=== PATIENT | female | born 1990 | race Caucasian/White ===

== ENCOUNTER → 2018-02-15 17:26 | Outpatient (CLI) | payer SELFPAY ==
[2018-02-15 18:31] LABS: Absolute Lymphocyte Count 2.24 X10^3/ul (0.83-4.51); Absolute Neutrophil Count 5.3 X10^3/uL (2.0-7.7); Basophil# 0.04 X10^3/uL; Basophil% 0.5 % (0-1); Eosinophil# 0.16 X10^3/uL; Hematocrit 33.7 % (37-47); Lymphocyte # 2.24 X10^3/ul (4.0); Lymphocyte % 27.4 % (19-41); Mean Corp Hgb Conc 32.6 g/gl (32-36); Mean Corpuscular Hgb 26.1 pg (27.0-32.0); Mean Corpuscular Volume 79.9 fL (81-99); Monocyte# 0.44 X10^3/uL; Monocyte% 5.4 % (0-10); Neutrophil % 64.6 % (47-70); Platelet Count 212 K/mm3 (150-450); RBC Distribution Width CV 13.1 % (11.6-14.6); RBC Distribution Width SD 37.7 fl (35.1-43.9); Red Blood Count 4.22 M/mm3 (4.2-5.4); White Blood Count 8.2 K/mm3 (4.4-11.0)
[2018-02-15 18:44] LABS: POSITIVE COUNT NO; POSITIVE DIFFERENTIAL NO; POSITIVE MORPHOLOGY NO
[2018-02-15 20:31] LABS: Chlamydia Trachomatis by PCR Negative (Negative); Neisserai gonorrhoeae by PCR Negative (Negative); Probe Check PASS; Sample Adequacy Control PASS; Specimen Processing Control PASS
[2018-02-16 11:00] LABS: HIV - WCH Non-Reactive (Nonreactive); Rubella IgG > 500.0 IU/mL
[2018-02-17 17:11] LABS: HEPATITIS B SURFACE AG Negative (Negative)
[2018-02-18 04:35] LABS: Rapid Plasmin Reagin (RPR) NONREACTIVE (NONREACTIVE)
[2018-02-19 10:30] LABS: HPV Reflexed? NOT INDICATED
== END ==
PROVIDERS: Family Provider Family Medicine; PCP Family Medicine; Visit Provider Obstetrics & Gynecology
DX: Z34.90 Encounter for supervision of normal pregnancy, unspecified, unspecified trimester (principal)
CPT/HCPCS: 36415; 85025; 86592; 86703; 86762; 86850; 86900; 87086; 87340; 87491; 87591; 88175; G0145

== ENCOUNTER → 2018-04-29 12:56 | Outpatient (CLI) | payer SELFPAY ==
--- NOTE | 2018-04-29 13:02 | US_ITS ---
STUDY: SECOND AND THIRD TRIMESTER OBSTETRICAL ULTRASOUND REASON FOR EXAM: Female, 27 years old. Complete 2nd trimester OB ultrasound with anatomy survey and biometrics. LMP: 12/23/2017. RUBEN (LMP) 09/29/2018. GA (LMP) 18 week 1 day. TECHNIQUE: Transabdominal PRIOR ULTRASOUND: None. FINDINGS: There is a single live intrauterine gestation in cephalic presentation with cardiac rate 156 bpm. Amniotic fluid quantity is normal, deepest vertical pocket is 6.4 cm. The placenta is anterior, not low-lying, grade 1. Cervical length is 3.1 cm, closed. The maternal adnexa are not visualized. BIOMETRY: Measurement in centimeters. BPD: 4.11: 18 weeks, 4 days HC: 15.51: 18 weeks, 4 days AC: 12.26: 18 weeks, 0 days FL: 2.73: 18 weeks, 3 days CI: 77% FL/BPD: 66% FL/AC: 22% HC/AC: 1.27 age by current US: 18 weeks, 3 days. RUBEN by current US: 09/27/2018. Estimated weight: 227 grams, +/- 33 grams, 46 %. ANATOMY: Gender: Female. Cranium: Normal lateral ventricles. Normal choroid plexus. Normal cerebellum. Normal cisterna magna. Normal face, nose and lips. Chest: Normal 4-chamber heart. Abdomen/Pelvis: Normal diaphragm. Normal stomach. Normal abdominal wall. Normal cord insertion. Normal 3 vessel cord. Normal kidneys. Normal bladder. Spine: Spinal views are somewhat limited due to positioning. Evaluated portions exhibit grossly normal segmentation without evidence of dysraphism. However, follow-up imaging be necessary Extremities: Normal bilateral upper extremities. Normal bilateral lower extremities. US/OB Anatomy Scan IMPRESSION: Single live intrauterine gestation. No acute or maternal abnormality is evident. In the anatomic survey, views of the spine are partially incomplete. Although no gross spinal abnormality was observed, follow-up limited sonography of the spine should be performed after a brief normal growth, within 1 or 2 weeks. The anatomic survey is otherwise normal. Electronically Signed: Otis Brown, at 16:10 EDT Tel , Service support ,
== END ==
PROVIDERS: Family Provider Family Medicine; PCP Family Medicine; Visit Provider Nurse Practitioner Women's Health
DX: Z34.90 Encounter for supervision of normal pregnancy, unspecified, unspecified trimester (principal)
CPT/HCPCS: 76805

== ENCOUNTER → 2018-05-02 16:11 | Outpatient (CLI) | payer SELFPAY | PROVIDERS: Family Provider Family Medicine; PCP Family Medicine; Referring Provider Nurse Practitioner Women's Health; Visit Provider Nurse Practitioner Women's Health | DX: Z36.9 Encounter for antenatal screening, unspecified (principal) | CPT/HCPCS: 36415; 82105; 82677; 84702; 86336 ==

== ENCOUNTER → 2018-06-30 13:43 | Outpatient (CLI) | payer SELFPAY ==
[2018-06-30 13:12] VITALS: BMI 26.9
[2018-06-30 14:26] LABS: Absolute Lymphocyte Count 1.31 X10^3/ul (0.83-4.51); Absolute Neutrophil Count 7.5 X10^3/uL (2.0-7.7); Basophil# 0.02 X10^3/uL; Basophil% 0.2 % (0-1); Eosinophil# 0.18 X10^3/uL; Eosinophils% 1.9 % (0-5); Hemoglobin 10.4 g/dl (12.0-15.0); Lymphocyte # 1.31 X10^3/ul (4.0); Lymphocyte % 13.9 % (19-41); Mean Corp Hgb Conc 32.5 g/gl (32-36); Mean Corpuscular Hgb 27.1 pg (27.0-32.0); Mean Corpuscular Volume 83.3 fL (81-99); Mean Platelet Vol. 9.5 fl (6.2-12.0); Monocyte# 0.39 X10^3/uL; Monocyte% 4.1 % (0-10); Neutrophil # 7.48 X10^3/uL (2.7-7.7); Neutrophil % 79.7 % (47-70); Platelet Count 195 K/mm3 (150-450); RBC Distribution Width CV 13.6 % (11.6-14.6); RBC Distribution Width SD 41.6 fl (35.1-43.9); Red Blood Count 3.84 M/mm3 (4.2-5.4); White Blood Count 9.4 K/mm3 (4.4-11.0)
[2018-06-30 14:28] LABS: Glucose Challenge Gest 1H 50g 134 mg/dL (70-140); POSITIVE COUNT NO; POSITIVE DIFFERENTIAL NO; POSITIVE MORPHOLOGY NO
== END ==
PROVIDERS: Family Provider Family Medicine; PCP Family Medicine; Referring Provider Nurse Practitioner Women's Health; Visit Provider Nurse Practitioner Women's Health
DX: Z34.90 Encounter for supervision of normal pregnancy, unspecified, unspecified trimester (principal)
CPT/HCPCS: 36415; 82950; 85025

== ENCOUNTER → 2018-09-07 16:54 | Outpatient (CLI) | payer SELFPAY ==
[2018-09-07 12:01] VITALS: BMI 26.9
== END ==
PROVIDERS: Family Provider Family Medicine; PCP Family Medicine; Referring Provider Obstetrics & Gynecology; Visit Provider Obstetrics & Gynecology
DX: Z34.90 Encounter for supervision of normal pregnancy, unspecified, unspecified trimester (principal)
CPT/HCPCS: 87081

== ENCOUNTER 2018-09-22 11:20 | Inpatient (IN) | payer SELFPAY ==
[2018-09-19 15:47] VITALS: BMI 26.9
[2018-09-22 11:44] VITALS: BMI 30.9
[2018-09-22] MEDS: 0.9% Saline Lock 10 ML Syringe IV (12:52)
[2018-09-22 13:31] LABS: Hematocrit 34.6 % (37-47); Mean Corp Hgb Conc 31.8 g/gl (32-36); Mean Platelet Vol. 11.6 fl (6.2-12.0); Platelet Count 187 K/mm3 (150-450); RBC Distribution Width CV 14.2 % (11.6-14.6); Red Blood Count 4.07 M/mm3 (4.2-5.4); White Blood Count 9.6 K/mm3 (4.4-11.0)
[2018-09-22 13:35] LABS: Scan Indicated on CBC? Y/N NO
--- NOTE | 2018-09-22 13:42 | PCM.HP.OB ---
- Problem List (1) Anemia during Status: Acute Comment: Recommended iron (2) Status: Acute Qualifiers: Comment: G1 (3) Supervision of normal Status: Acute Qualifiers: Comment: PRR RUBEN 09/29/18 girl Gurwinder (4) Maternal asthma complicating Status: Acute Comment: mild intermittent rare albuterol PRN (5) PROM (premature rupture of membranes) Status: Acute History Date of Admission: 09/22/18 Final RUBEN: 09/29/18 Gestational age: 39 Weeks and 0 Days History of this : This is a 27 year-old, at 39 weeks gestational age presents with clear ROM this morning at 5 am. she is having some contractions but no significant labor yet. she dneies significant bleeding and admits good fm. Medical History: Medical History (Last Reviewed 09/19/18 @ 15:47 by Elidia Ash) Asthma J45.909 Surgical History: Surgical History (Last Reviewed 09/19/18 @ 15:47 by Elidia Ash) S/P tonsillectomy and adenoidectomy Z90.89 Allergies No Known Allergies Allergy (Verified 09/19/18 15:46) Home Medications: Home Medications docosahexanoic acid 200 mg capsule 1 mg PO BID 02/15/18 docusate sodium 100 mg capsule 100 mg PO QDAY 02/15/18 vitamin,calcium,dufjkscv-nmnk-xrbtb acid tablet 1 tab PO QDAY 02/15/18 Smoking Status: Never smoker Alcohol: None Number of Fetus(es): 1 Heart Tracins moderate variability reactive no decels toco irregular History Past Pregnancies: Past Pregnancies Delivery Date Name GA/Weeks Outcome Route Weight Gender Labor Length Anesthesia Delivery Location Provider FOB Labs: [facility] & Results 09/22/18 09/22/18 13:05 13:05 WBC 9.6 RBC 4.07 L Hgb 11.0 L Hct 34.6 L MCV 85.0 MCH 27.0 MCHC 31.8 L RDW 14.2 RDW Differential 43.0 Plt Count 187 MPV 11.6 Blood Type Pending Antibody Screen Pending Course Did the patient receive Yes care? Labs Blood Type: A RH: POSITIVE RPR/VDRL/Syphilis Nonreactive Rubella status Immune HbSAg Negative Date Done: 02/15/18 Chlamydia Negative Gonorrhea Negative HIV/AIDS Non-Reactive Group B Strep: Negative Current Obstetrical History Gestational Diabetes No Incompetent Cervix No Infertility No IUGR No Macrosomia No Hypertension/Pre-eclampsia No Placenta Previa/Abruption No PTL/PROM No Uterine anomaly No Oligohydramnios No Polyhydramnios No Multiple gestation No Past Medical History Asthma Yes: inhaler Diabetes No Hypertension No Heart disease No Mitral valve prolapse No Neurologic/Seizure disorder/ No Migraines Kidney disease No Liver disease No Varicosities No Clotting disorders/Hx of DVT No Thyroid Dysfunction No Other medical diseases No Psychiatric disorders No Major trauma No Abnormal PAP smear No Sleep apnea No Mammogram in the last 2 years No Social History Marital Status: Alleged father Caitlyn Hx Smoking No Smoking Status Never smoker Expected Delivery Method: Spontaneous Vaginal Review of Systems Constitutional: Denies: Fever, Malaise Eyes: Denies: Blurred vision, Vision Change HEENT: Denies: Head Aches, Visual Changes Cardiovascular: Denies: Chest Pain, Palpitations Respiratory: Denies: Cough, Shortness of Breath, Wheezing Gastrointestinal: Denies: Abdominal Pain, Diarrhea, Nausea, Vomiting Genitourinary: Denies: Dysuria, Hematuria Musculoskeletal: Denies: Joint Pain, Muscle pain Skin: Denies: Lesions, Rash Neurological: Denies: Blurred vision, Focal weakness, Headaches Psychiatric: Denies: Anxiety, Depression Endocrine: Denies: Heat/ Cold Intolerance Hematologic/ Lymphatic: Denies: Easy Bruising, Easy Bleeding Physical Exam General: Alert, Cooperative, No apparent distress HEENT: Atraumatic, Normocephalic. Negative for: Thyromegaly, Lymphadenopathy Cardiovascular: Regular rate Lungs: Normal air movement Abdomen: Soft, Non Tender, Gravid Neurological: Deep Tendon Reflexes 2+/4 and Symmetrical, Neuro grossly intact. 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 Negative for: Vulvar lesions Estimated gestational size: Appropriate for gestational size Presentation: Cephalic Cervix Dilation (cm): 2 Assessment/Plan All Active Problems (Last Reviewed 09/19/18 @ 15:47 by Elidia Ash) PROM (premature rupture of membranes) (Acute) Anemia during (Acute) (Acute) Supervision of normal (Acute) Maternal asthma complicating (Acute) This is a 27 year-old, at 39 weeks gestational age presents with PROM Patient presents IAL, plan expectant management for , pitocin if needed. Pain management: Plans minimal intervention but is open to epidural. GBS negative Management of any complications: None I have reviewed the [facility] and made any clinically relevant updates.
--- NOTE | 2018-09-22 13:45 | HP.PCM_ITS ---
- Problem List (1) Anemia during Status: Acute Comment: Recommended iron (2) Status: Acute Qualifiers: Comment: G1 (3) Supervision of normal Status: Acute Qualifiers: Comment: PRR RUBEN 09/29/18 girl Gurwinder (4) Maternal asthma complicating Status: Acute Comment: mild intermittent rare albuterol PRN (5) PROM (premature rupture of membranes) Status: Acute History Date of Admission: 09/22/18 Final RUBEN: 09/29/18 Gestational age: 39 Weeks and 0 Days History of this : This is a 27 year-old, at 39 weeks gestational age presents with clear ROM this morning at 5 am. she is having some contractions but no significant labor yet. she dneies significant bleeding and admits good fm. Medical History: Medical History (Last Reviewed 09/19/18 @ 15:47 by Elidia Ash) Asthma J45.909 Surgical History: Surgical History (Last Reviewed 09/19/18 @ 15:47 by Elidia Ash) S/P tonsillectomy and adenoidectomy Z90.89 Allergies No Known Allergies Allergy (Verified 09/19/18 15:46) Home Medications: Home Medications docosahexanoic acid 200 mg capsule 1 mg PO BID 02/15/18 docusate sodium 100 mg capsule 100 mg PO QDAY 02/15/18 vitamin,calcium,djehqovv-ldnv-tbjjo acid tablet 1 tab PO QDAY 02/15/18 Smoking Status: Never smoker Alcohol: None Number of Fetus(es): 1 Heart Tracins moderate variability reactive no decels toco irregular History Past Pregnancies: Past Pregnancies Delivery Date Name GA/Weeks Outcome Route Weight Gender Labor Length Anesthesia Delivery Location Provider FOB Labs: [facility] Labs & Results 09/22/18 09/22/18 13:05 13:05 WBC 9.6 RBC 4.07 L Hgb 11.0 L Hct 34.6 L MCV 85.0 MCH 27.0 MCHC 31.8 L RDW 14.2 RDW Differential 43.0 Plt Count 187 MPV 11.6 Blood Type Pending Antibody Screen Pending Course Did the patient receive Yes care? Labs Blood Type: A RH: POSITIVE RPR/VDRL/Syphilis Nonreactive Rubella status Immune HbSAg Negative Date Done: 02/15/18 Chlamydia Negative Gonorrhea Negative HIV/AIDS Non-Reactive Group B Strep: Negative Current Obstetrical History Gestational Diabetes No Incompetent Cervix No Infertility No IUGR No Macrosomia No Hypertension/Pre-eclampsia No Placenta Previa/Abruption No PTL/PROM No Uterine anomaly No Oligohydramnios No Polyhydramnios No Multiple gestation No Past Medical History Asthma Yes: inhaler Diabetes No Hypertension No Heart disease No Mitral valve prolapse No Neurologic/Seizure disorder/ No Migraines Kidney disease No Liver disease No Varicosities No Clotting disorders/Hx of DVT No Thyroid Dysfunction No Other medical diseases No Psychiatric disorders No Major trauma No Abnormal PAP smear No Sleep apnea No Mammogram in the last 2 years No Social History Marital Status: Alleged father Caitlyn Hx Smoking No Smoking Status Never smoker Expected Delivery Method: Spontaneous Vaginal Review of Systems Constitutional: Denies: Fever, Malaise Eyes: Denies: Blurred vision, Vision Change HEENT: Denies: Head Aches, Visual Changes Cardiovascular: Denies: Chest Pain, Palpitations Respiratory: Denies: Cough, Shortness of Breath, Wheezing Gastrointestinal: Denies: Abdominal Pain, Diarrhea, Nausea, Vomiting Genitourinary: Denies: Dysuria, Hematuria Musculoskeletal: Denies: Joint Pain, Muscle pain Skin: Denies: Lesions, Rash Neurological: Denies: Blurred vision, Focal weakness, Headaches Psychiatric: Denies: Anxiety, Depression Endocrine: Denies: Heat/ Cold Intolerance Hematologic/ Lymphatic: Denies: Easy Bruising, Easy Bleeding Physical Exam General: Alert, Cooperative, No apparent distress HEENT: Atraumatic, Normocephalic. Negative for: Thyromegaly, Lymphadenopathy Cardiovascular: Regular rate Lungs: Normal air movement Abdomen: Soft, Non Tender, Gravid Neurological: Deep Tendon Reflexes 2+/4 and Symmetrical, Neuro grossly intact. 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 Negative for: Vulvar lesions Estimated gestational size: Appropriate for gestational size Presentation: Cephalic Cervix Dilation (cm): 2 Assessment/Plan All Active Problems (Last Reviewed 09/19/18 @ 15:47 by Elidia Ash) PROM (premature rupture of membranes) (Acute) Anemia during (Acute) (Acute) Supervision of normal (Acute) Maternal asthma complicating (Acute) This is a 27 year-old, at 39 weeks gestational age presents with PROM Patient presents IAL, plan expectant management for , pitocin if needed. Pain management: Plans minimal intervention but is open to epidural. GBS negative Management of any complications: None I have reviewed the [facility] and made any clinically relevant updates.
[2018-09-22] MEDS: Lactated Ringers 1,000 ML 50 ML IV ×2 (13:55→17:11)
[2018-09-22] MEDS: Oxytocin 30 units/NS 500 ml 30 UNITS/500 ML IV.SOLN IV (14:01)
[2018-09-22] MEDS: fentaNYL-bupivacaine (epidural) 100 ML BAG EPIDURAL (16:18)
[2018-09-22] MEDS: Oxytocin 30 units/NS 500 ml 30 UNITS/500 ML IV.SOLN 334 UNITS IV (19:47)
--- NOTE | 2018-09-22 20:08 | PCM.OB.VAG ---
- Problem List (1) Anemia during Status: Acute Comment: Recommended iron (2) Status: Acute Qualifiers: Comment: G1 (3) Supervision of normal Status: Acute Qualifiers: Comment: PRR RUBEN 09/29/18 girl Gurwinder (4) Maternal asthma complicating Status: Acute Comment: mild intermittent rare albuterol PRN (5) PROM (premature rupture of membranes) Status: Acute Vaginal Delivery Maternal Presentation: Active Labor prom 5 am clear fluid Amniotic Membrane Rupture Type: Spontaneous at home Amniotic Fluid Description: Clear Final RUBEN: 09/29/18 Gestational age: 39 Weeks and 0 Days Date of Procedure: 09/22/18 Pre-Operative Diagnosis: prom Post-Operative Diagnosis: same Surgery/ Procedure Performed: Spontaneous Vaginal Delivery Type of Anesthesia: Epidural, Local with 1% lidocaine Description of Procedure: Patient began pushing and delivered the head in the ARON presentation. The head was delivered atraumatically. The anterior and posterior shoulders delivered without complication followed by the rest of the infant and the infant was placed on the maternal abdomen. Delayed cord clamping was employed for approximately 60 seconds. Cord was clamped and cut and gentle traction was applied to the cord and the placenta delivered spontaneously immediately following it was noted to be intact with three-vessel cord. The perineum and vagina were inspected and noted to have second degree laceration repaired in the usual fashion. EBL was 300 cc. Patient and infant tolerated delivery well. Presentation: ARON Placental Delivery Description: Spontaneous Placenta Disposition: [facility] Cord Vessel Description: 3 Vessels Cord Entanglement: True Knot(s) Estimated Blood Loss: 300 Infant A gender: Female Episiotomy Description: None Laceration: Perineal Extension/lac, 2nd degree Medications given after delivery: IV Pitocin Complications: None
--- NOTE | 2018-09-22 20:10 | PCM.DCVAG ---
Discharge Diet: No Restrictions Discharge Activity: Return to Normal Activity, May not drive while taking narcotic pain medications., May Shower May resume sexual activity in: 4-6 weeks Call your doctor if your incision/area has: Continuous Slow Oozing, Sudden Increased Bleeding, Increased Pain/ Swelling, Increased Redness, Foul Smelling Discharge Additional Instructions: If you experience any of the following, contact your healthcare provider. Bleeding that soaks a pad every hour for 2 hours Fever 100.4 or higher Unrelieved incision or abdominal pain Swelling, redness, discharge or bleeding from your incision or episiotomy site Your incision begins to separate Problems urinating (including inability to urinate or burning while urinating). Visual changes Severe headache Flu-like symptoms Pain or redness in one of both of your breasts Pain, warmth, tenderness or swelling in your legs, especially the calf area Frequent nausea and vomiting Symptoms of depression or anxiety If you experience any of the following, call 911 or go to the nearest Emergency Room. Chest pain Problems breathing Seizure activity Partial or complete paralysis of a body part, slurred speech, weakness or drooping of the face, or a sudden inability to walk or hold your balance Allergies/Adverse Reactions: Allergies No Known Allergies Allergy (Verified 09/19/18 15:46) Medications to take at Discharge docosahexanoic acid 200 mg capsule 1 mg PO BID 02/15/18 docusate sodium 100 mg capsule 100 mg PO QDAY 02/15/18 vitamin,calcium,vpubhopd-wusr-rodic acid tablet 1 tab PO QDAY 02/15/18 Please Follow Up With: Nicky Medellin MD - [phone] When: Call to make an appointment with your doctor in 6 weeks. If you had elevated Blood pressure or 4th degree laceration you will need to be seen in 2 weeks. Primary Care Physician: Dorian Goode [Primary Care Provider] - Test Results: Test results from this visit will be discussed in further detail at your follow-up appointment, if applicable.
--- NOTE | 2018-09-22 20:11 | DCINST_ITS ---
Discharge Diet: No Restrictions Discharge Activity: Return to Normal Activity, May not drive while taking narcotic pain medications., May Shower May resume sexual activity in: 4-6 weeks Call your doctor if your incision/area has: Continuous Slow Oozing, Sudden Increased Bleeding, Increased Pain/ Swelling, Increased Redness, Foul Smelling Discharge Additional Instructions: If you experience any of the following, contact your healthcare provider. * Bleeding that soaks a pad every hour for 2 hours * Fever 100.4 or higher * Unrelieved incision or abdominal pain * Swelling, redness, discharge or bleeding from your incision or episiotomy site * Your incision begins to separate * Problems urinating (including inability to urinate or burning while urinating). * Visual changes * Severe headache * Flu-like symptoms * Pain or redness in one of both of your breasts * Pain, warmth, tenderness or swelling in your legs, especially the calf area * Frequent nausea and vomiting * Symptoms of depression or anxiety If you experience any of the following, call 911 or go to the nearest Emergency Room. * Chest pain * Problems breathing * Seizure activity * Partial or complete paralysis of a body part, slurred speech, weakness or drooping of the face, or a sudden inability to walk or hold your balance Allergies/Adverse Reactions: Allergies No Known Allergies Allergy (Verified 09/19/18 15:46) Medications to take at Discharge docosahexanoic acid 200 mg capsule 1 mg PO BID 02/15/18 docusate sodium 100 mg capsule 100 mg PO QDAY 02/15/18 vitamin,calcium,idtbpfra-jdar-pttbn acid tablet 1 tab PO QDAY 02/15/18 Please Follow Up With: Nicky Medellin MD - [phone] When: Call to make an appointment with your doctor in 6 weeks. If you had elevated Blood pressure or 4th degree laceration you will need to be seen in 2 weeks. Primary Care Physician: Dorian Goode [Primary Care Provider] - Test Results: Test results from this visit will be discussed in further detail at your follow- up appointment, if applicable.
[2018-09-22] MEDS: Oxytocin 30 units/NS 500 ml 30 UNITS/500 ML IV.SOLN 167 UNITS IV (20:17)
[2018-09-22] MEDS: Naproxen 250 MG Tablet PO (22:15)
[2018-09-22 23:25] VITALS: BP 121/77; PULSE 107; RESP 18; TEMP 37.3; O2SAT 99
[2018-09-23] MEDS: Acetaminophen 500 MG Tablet 1000 MG PO ×3 (02:25→18:35)
[2018-09-23 04:00] VITALS: BP 113/60; PULSE 85; RESP 16; TEMP 37.1
[2018-09-23] MEDS: Naproxen 250 MG Tablet PO ×3 (06:36→22:42)
[2018-09-23 07:50] VITALS: BP 118/61; PULSE 92; RESP 16; TEMP 37.1; O2SAT 96
--- NOTE | 2018-09-23 09:14 | PCM.PN.OB ---
Patient Problems: Active and Suspected Problems (Last Reviewed 09/19/18 @ 15:47 by Elidia Ash) PROM (premature rupture of membranes) (Acute) Subjective: doing well no complaints pain controlled no CP SOB N V ambulating well tolerating po lochia moderate, going well - Physical Exam General: Alert, Oriented x3 Vital Signs Temp Pulse Resp BP Pulse Ox 98.7 F 85 16 113/60 99 09/23/18 04:00 09/23/18 04:00 09/23/18 04:00 09/23/18 04:00 09/22/18 23:25 Oxygen Delivery Method Room Air Weight: 174 lb 13.225 oz Body Mass Index (BMI) 30.9 Intake and Output for Last 24 Hours 09/21/18 09/22/18 09/23/18 23:59 23:59 23:59 Intake Total 3064 / 3064 Output Total 1500 / 1500 Balance 1564 / 1564 Laboratory Tests Past 24 Hrs 09/22/18 09/22/18 13:05 13:05 WBC 9.6 RBC 4.07 L Hgb 11.0 L Hct 34.6 L MCV 85.0 MCH 27.0 MCHC 31.8 L RDW 14.2 RDW Differential 43.0 Plt Count 187 MPV 11.6 Blood Type A POSITIVE Antibody Screen NEGATIVE Medical Necessity - Tobacco Use Smoking Status: Never smoker Assessment/Plan All Active Problems (Last Reviewed 09/19/18 @ 15:47 by Elidia Ash) PROM (premature rupture of membranes) (Acute) Anemia during (Acute) (Acute) Supervision of normal (Acute) Maternal asthma complicating (Acute) s/p PPD # 1 1. routine post delivery care 2. breast feeding- support given 3. rh positive 4. rubella immune
[2018-09-23] MEDS: Senna/Docusate Sodium 1 Tablet PO (10:35)
[2018-09-23 12:30] VITALS: BP 114/72; PULSE 89; RESP 14; TEMP 37.1; O2SAT 98
--- NOTE | 2018-09-23 12:30 | NURSING ---
pt using lasinoh prn to help with nipple tenderness
[2018-09-23 16:30] VITALS: BP 112/65; PULSE 78; RESP 14; TEMP 36.6; O2SAT 99
[2018-09-23 20:10] VITALS: BP 111/72; PULSE 90; RESP 16; TEMP 36.9; O2SAT 97
[2018-09-24 02:06] VITALS: BP 121/76; PULSE 78; RESP 14; TEMP 36.7; O2SAT 97
[2018-09-24] MEDS: Acetaminophen 500 MG Tablet 1000 MG PO ×2 (02:38→11:41)
--- NOTE | 2018-09-24 07:00 | PCM.PN.OB ---
Patient Problems: Active and Suspected Problems (Last Reviewed 09/19/18 @ 15:47 by Elidia Ash) PROM (premature rupture of membranes) (Acute) Subjective: doing well no complaints pain controlled no CP SOB N V ambulating well tolerating po lochia moderate, going well - Physical Exam Vital Signs Temp Pulse Resp BP Pulse Ox 98.1 F 78 14 121/76 H 97 09/24/18 02:06 09/24/18 02:06 09/24/18 02:06 09/24/18 02:06 09/24/18 02:06 Oxygen Delivery Method Room Air Weight: 174 lb 13.225 oz Body Mass Index (BMI) 30.9 Intake and Output for Last 24 Hours 09/22/18 09/23/18 09/24/18 23:59 23:59 23:59 Intake Total 3064 / 3064 Output Total 1500 / 1500 Balance 1564 / 1564 Medical Necessity - Tobacco Use Smoking Status: Never smoker Assessment/Plan All Active Problems (Last Reviewed 09/19/18 @ 15:47 by Elidia Ash) PROM (premature rupture of membranes) (Acute) Anemia during (Acute) (Acute) Supervision of normal (Acute) Maternal asthma complicating (Acute) s/p PPD # 2 1. routine post delivery care 2. breast feeding- support given 3. rh positive 4. rubella immune
[2018-09-24 08:00] VITALS: BP 115/63; PULSE 86; RESP 16; TEMP 36.7
[2018-09-24] MEDS: Naproxen 250 MG Tablet PO (08:08)
[2018-09-24] MEDS: Senna/Docusate Sodium 1 Tablet PO (11:41)
[2018-09-24 12:45] VITALS: BP 126/75; PULSE 85; RESP 16; TEMP 36.7
== END 2018-09-24 12:30 | disposition home or self-care (01) | DRG 807 ==
PROVIDERS: Admitting Provider Obstetrics & Gynecology; Family Provider Family Medicine; PCP Family Medicine; Visit Provider Obstetrics & Gynecology
DX: O42.92 Full-term premature rupture of membranes, unspecified as to length of time between rupture and onset of labor (principal); Z37.0 Single live birth; Z3A.39 39 weeks gestation of pregnancy; J45.909 Unspecified asthma, uncomplicated; O99.02 Anemia complicating childbirth; D64.9 Anemia, unspecified; O70.1 Second degree perineal laceration during delivery; O69.2XX0 Labor and delivery complicated by other cord entanglement, with compression, not applicable or unspecified
CPT/HCPCS: 59025; 59050; 85027; 86850; 86900; 99218; J7120; A4216; G0378

== ENCOUNTER → 2020-01-01 14:36 | Outpatient (CLI) | payer SELFPAY ==
[2020-01-01 14:11] VITALS: BMI 30.9
[2020-01-01 15:36] LABS: Absolute Lymphocyte Count 1.81 X10^3/uL (0.83-4.51); Absolute Neutrophil Count 4.4 X10^3/uL (2.0-7.7); Basophil# 0.04 X10^3/uL; Basophil% 0.6 % (0-1); Eosinophils% 1.5 % (0-5); Hematocrit 34.2 % (37-47); Lymphocyte # 1.81 X10^3/ul (4.0); Lymphocyte % 26.9 % (19-41); Mean Corp Hgb Conc 32.2 g/dL (32-36); Mean Corpuscular Hgb 26.4 pg (27.0-32.0); Mean Platelet Vol. 9.9 fl (6.2-12.0); Monocyte# 0.35 X10^3/uL; Monocyte% 5.2 % (0-10); NRBC Flagged by Analyzer 0 % (0-5); Neutrophil # 4.41 X10^3/uL (2.7-7.7); Neutrophil % 65.7 % (47-70); Platelet Count 247 K/mm3 (150-450); RBC Distribution Width CV 13.2 % (11.6-14.6); RBC Distribution Width SD 38.8 fl (35.1-43.9); Red Blood Count 4.17 M/mm3 (4.2-5.4); White Blood Count 6.7 K/mm3 (4.4-11.0)
[2020-01-01 16:43] LABS: Amphetamine Urine VISTA NEGATIVE (<1000 ng/mL); Barbiturate Urine VISTA NEGATIVE (< 200 ng/mL); Benzodiazepine Urine VISTA NEGATIVE (< 200 ng/mL); Cocaine Urine VISTA NEGATIVE (< 300 ng/mL); Ecstacy Urine VISTA NEGATIVE (< 500 ng/mL); Methadone Urine VISTA NEGATIVE (< 300 ng/mL); PCP Urine VISTA NEGATIVE (< 25 ng/mL); THC Urine VISTA NEGATIVE (< 50 ng/mL); Vista UDS pH Range 5
[2020-01-01 19:44] LABS: Chlamydia Trachomatis by PCR Negative (Negative); Neisserai gonorrhoeae by PCR Negative (Negative); Probe Check PASS; Sample Adequacy Control PASS; Specimen Processing Control PASS
[2020-01-02 10:15] LABS: HIV - WCH Non-Reactive (Nonreactive); Hepatitis B Surface Antigen Non-Reactive (Nonreactive); Hepatitis C Antibody Non-Reactive (Nonreactive); Rubella IgG > 500.0 IU/mL
[2020-01-04 01:57] LABS: Rapid Plasmin Reagin (RPR) NONREACTIVE (NONREACTIVE)
== END ==
PROVIDERS: PCP Family Medicine; Referring Provider Obstetrics & Gynecology; Visit Provider Obstetrics & Gynecology
DX: Z34.80 Encounter for supervision of other normal pregnancy, unspecified trimester (principal)
CPT/HCPCS: 36415; 80307; 85025; 86592; 86703; 86762; 86803; 86850; 86900; 86901; 87086; 87088; 87340; 87491; 87591

== ENCOUNTER → 2020-03-15 13:08 | Outpatient (CLI) | payer SELFPAY ==
[2020-02-02 11:58] VITALS: BMI 30.9
[2020-02-29 13:06] VITALS: BMI 30.9
--- NOTE | 2020-03-15 13:09 | US_ITS ---
STUDY: SECOND AND THIRD TRIMESTER OBSTETRICAL ULTRASOUND REASON FOR EXAM: Female, 29 years old anatomy LMP: 10/22/2019 TECHNIQUE: Transabdominal TECHNICAL QUALITY: Adequate. PRIOR ULTRASOUND: None. FINDINGS: There is a single intrauterine fetus. The fetus is in a transverse lie with the head on the maternal right side. There is demonstrated cardiac activity with a heart rate of 158 bpm. There is a normal amniotic fluid volume. The largest amniotic fluid pocket measures 7.3 cm x 4.3 cm. The amniotic fluid index (CAROLYNN) is within normal limits. The placenta is anterior in location and is not low lying. There are Grade 0 placental changes. The cervix measures 4.7 cm in length. The bilateral adnexal regions are normal. BIOMETRY: BPD: 5.08 cm: 21 weeks, 2 days HC: 18.76 cm: 21 weeks, 0 days AC: 16.56 on the: 21 weeks, 4 days FL: 3.31 cm: 20 weeks, 2 days CI: 77.4% FL/BPD: 65.1% FL/HC: FL/AC: 20% HC/AC: 1.13 age by current US: 21 weeks, 1 days. RUBEN by current US: 07/25/2020. Estimated weight: 396 grams, +/- 59 grams, 55 %. Age by LMP: 20 weeks, 5 days. RUBEN by LMP: 07/28/2020. ANATOMY: Gender: Male Cranium: Normal lateral ventricles. Normal choroid plexus. Normal cerebellum. Normal cisterna magna. Normal face, nose and lips. Chest: Normal 4-chamber heart. Abdomen/Pelvis: Normal diaphragm. Normal stomach. Normal abdominal wall. Normal cord insertion. Normal 3 vessel cord. Normal kidneys. Normal bladder. Spine: Normal cervical spine. Normal thoracic spine. Normal lumbar spine. Normal sacrum. Extremities: Normal bilateral upper extremities. Normal bilateral lower extremities. US/OB Anatomy Scan IMPRESSION: Single live intrauterine gestation with a mean gestational age of 21 weeks and 1 day. Electronically Signed: Garland Merchant, at 14:53 EDT , Service support ,
== END ==
PROVIDERS: PCP Family Medicine; Referring Provider Obstetrics & Gynecology; Visit Provider Obstetrics & Gynecology
DX: Z34.80 Encounter for supervision of other normal pregnancy, unspecified trimester (principal)
CPT/HCPCS: 76805

== ENCOUNTER → 2020-04-29 11:58 | Outpatient (CLI) | payer SELFPAY ==
[2020-04-29 11:34] VITALS: BMI 30.9
[2020-04-29 13:06] LABS: Absolute Neutrophil Count 5.8 X10^3/uL (2.0-7.7); Basophil# 0.02 X10^3/uL; Basophil% 0.2 % (0-1); Eosinophil# 0.17 X10^3/uL; Eosinophils% 2.1 % (0-5); Hematocrit 31.9 % (37-47); Hemoglobin 10.4 g/dL (12.0-15.0); Lymphocyte % 20.9 % (19-41); Mean Corp Hgb Conc 32.6 g/dL (32-36); Mean Corpuscular Hgb 28.5 pg (27.0-32.0); Mean Corpuscular Volume 87.4 fL (81-99); Mean Platelet Vol. 10.5 fl (6.2-12.0); Monocyte# 0.32 X10^3/uL; Monocyte% 3.9 % (0-10); NRBC Flagged by Analyzer 0 % (0-5); Neutrophil # 5.78 X10^3/uL (2.7-7.7); Neutrophil % 71.3 % (47-70); Platelet Count 190 K/mm3 (150-450); RBC Distribution Width CV 14.4 % (11.6-14.6); RBC Distribution Width SD 44.2 fl (35.1-43.9); Red Blood Count 3.65 M/mm3 (4.2-5.4); White Blood Count 8.1 K/mm3 (4.4-11.0)
[2020-04-29 13:07] LABS: Glucose Challenge Gest 1H 50g 104 mg/dL (70-140)
== END ==
PROVIDERS: PCP Family Medicine; Referring Provider Obstetrics & Gynecology; Visit Provider Obstetrics & Gynecology
DX: Z34.90 Encounter for supervision of normal pregnancy, unspecified, unspecified trimester (principal); Z13.1 Encounter for screening for diabetes mellitus
CPT/HCPCS: 36415; 82950; 85025

== ENCOUNTER → 2020-06-21 11:01 | Outpatient (CLI) | payer SELFPAY ==
[2020-06-21 10:31] VITALS: BMI 29.5
[2020-06-21 11:26] LABS: Absolute Lymphocyte Count 1.25 X10^3/uL (0.83-4.51); Absolute Neutrophil Count 5.6 X10^3/uL (2.0-7.7); Basophil# 0.04 X10^3/uL; Basophil% 0.5 % (0-1); Eosinophil# 0.11 X10^3/uL; Eosinophils% 1.5 % (0-5); Hematocrit 34.6 % (37-47); Hemoglobin 10.9 g/dL (12.0-15.0); Lymphocyte # 1.25 X10^3/ul (4.0); Lymphocyte % 16.7 % (19-41); Mean Corp Hgb Conc 31.5 g/dL (32-36); Mean Corpuscular Hgb 27.6 pg (27.0-32.0); Mean Corpuscular Volume 87.6 fL (81-99); Mean Platelet Vol. 9.7 fl (6.2-12.0); Monocyte# 0.35 X10^3/uL; Monocyte% 4.7 % (0-10); NRBC Flagged by Analyzer 0 % (0-5); Neutrophil # 5.61 X10^3/uL (2.7-7.7); Neutrophil % 74.7 % (47-70); Platelet Count 195 K/mm3 (150-450); RBC Distribution Width CV 13.7 % (11.6-14.6); RBC Distribution Width SD 43.7 fl (35.1-43.9); Red Blood Count 3.95 M/mm3 (4.2-5.4); White Blood Count 7.5 K/mm3 (4.4-11.0)
== END ==
PROVIDERS: PCP Family Medicine; Referring Provider Obstetrics & Gynecology; Visit Provider Obstetrics & Gynecology
DX: D64.9 Anemia, unspecified (principal)
CPT/HCPCS: 36415; 85025

== ENCOUNTER → 2020-07-05 | Outpatient (CLI) | payer SELFPAY ==
[2020-07-05 14:10] VITALS: BMI 29.6
== END | disposition home or self-care (01) ==
LOC: LABSPEC 17:53
PROVIDERS: PCP Family Medicine; Visit Provider Obstetrics & Gynecology
DX: Z34.90 Encounter for supervision of normal pregnancy, unspecified, unspecified trimester (principal)
CPT/HCPCS: 87081

== ENCOUNTER 2020-08-04 07:10 | Inpatient (IN) | payer SELFPAY ==
[2020-02-29 13:06] VITALS: BMI 30.9
[2020-07-24 14:07] VITALS: BMI 30.9
[2020-08-04] VITALS (46 sets, daily range): BP systolic 101–184; BP diastolic 55–109; PULSE 77–181; RESP 16; TEMP 35.7–37.3; O2SAT 76–100; BMI 29.4
[2020-08-04 08:02] LABS: Absolute Lymphocyte Count 1.57 X10^3/uL (0.83-4.51); Absolute Neutrophil Count 6.1 X10^3/uL (2.0-7.7); Basophil# 0.03 X10^3/uL; Basophil% 0.4 % (0-1); Eosinophil# 0.07 X10^3/uL; Eosinophils% 0.8 % (0-5); Hematocrit 34.7 % (37-47); Hemoglobin 11.1 g/dL (12.0-15.0); Lymphocyte # 1.57 X10^3/ul (4.0); Lymphocyte % 18.9 % (19-41); Mean Corpuscular Hgb 27.3 pg (27.0-32.0); Mean Corpuscular Volume 85.3 fL (81-99); Mean Platelet Vol. 10.5 fl (6.2-12.0); Monocyte# 0.49 X10^3/uL; Monocyte% 5.9 % (0-10); NRBC Flagged by Analyzer 0 % (0-5); Neutrophil # 6.08 X10^3/uL (2.7-7.7); Platelet Count 215 K/mm3 (150-450); RBC Distribution Width CV 13.4 % (11.6-14.6); RBC Distribution Width SD 41.6 fl (35.1-43.9); Red Blood Count 4.07 M/mm3 (4.2-5.4); White Blood Count 8.3 K/mm3 (4.4-11.0)
[2020-08-04] MEDS: 0.9% Saline Lock 10 ML Syringe IV (08:30)
[2020-08-04] MEDS: Lactated Ringers 1,000 ML 50 ML IV (08:52)
[2020-08-04] MEDS: Oxytocin 30 units/NS 500 ml 30 UNITS/500 ML IV.SOLN IV (09:10)
--- NOTE | 2020-08-04 09:25 | PCM.HPOB.BLA ---
- Problem List (1) 40 weeks gestation of Status: Acute Comment: declines covid test, advised to wear mask sc (2) Influenza vaccination declined Status: Acute Comment: 03/29/2020sc (3) Mild anemia Status: Acute Comment: repeat cbc in 4 wks (4) Status: Acute Qualifiers: Comment: declines genetic, carrier and NTD. 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 Nicky Medellin MD) Smoking Status: Never smoker alcohol intake: never substance use type: does not use caffeine: No what type of physical activity do you participate in: walking frequency: daily seatbelt use: always do you feel safe at home: Yes additional social history: [employer] Patient works for [employer] Pregancy History 2 Elective abortions Hx Para 1 Spontaneous abortions Hx # Term Pregnancies Ectopic pregnancies Hx # Pregnancies Multiple births # of living children 1 Past Pregnancies Del. Date Name GA/Weeks Outcome Route Bth Weight Infant Gen Labor Lgth [facility]est[facility] Provider FOB 09/22/18 Anuradha Barnett 39 live - full term 6lbs 14oz Female 16 hours epidural [facility] FABIAN HPI 40 WK OB: Details: NAOMI SIERRA is a 29 year old who presents for routine OB visit. OB Visit RUBEN Calculator Estimated Delivery Date Method Current WG Current Estimate 07/28/20 LMP (Certain) 40w 1d Expected Delivery Route/Plan Labor Preferences- labor support person: Atif pain management options preferred: minimal intervention preferred, open to epidural. intervention preferences: declines baby meds, hopes to avoid pitocin if possible but open if indicated cut cord/dad catch: yes : [] PP control planned: [] discussed possible routes of delivery and associated risks: discussed possible delivery modalities and possible indications for each including R/B/A of , VAVD, FAVD, and CS. questions answered. special requests: wants to do everything as naturally as possible, requests clear communication of exactly what is happening in labor. Requests delayed cord clamping until cord stops pulsating. Would like baby somewhat wiped off before being placed on her chest. Specific Issue/Plans flu vaccine: declined tdap vaccine: declined rhogam: na LARC form signed: declined movement and labor precautions reviewed. Problem list reviewed and updated with the most current plan of care details and appropriate orders placed. Relevant counseling for the gestational age provided. Continue routine care and follow up unless otherwise noted in visit notes/problem list details Initial Weight: 129 lb Date EGA Weight BP Urine Prot Glucose FHR FuHt Pres Dilation Effaced St Visit Note 02/02/20 14w 5d 132 lb 6 oz (+3 lb 6 oz) 114/70 Negative Negative 160 SM- no vb cramping 02/29/20 18w 4d 138 lb (+9 lb) 102/62 Negative Negative 250 SM- no vb cramping 03/29/20 22w 5d 144 lb 6 oz (+15 lb 6 oz) 90/50 150 23 SM- no vb lof good fm nor egular ctx 04/29/20 27w 1d 151 lb (+22 lb) 104/70 Negative Negative 140 27 SM- no vb lof good fm no regular ctx. cbc gct today declines vaccines 05/24/20 30w 5d 155 lb (+26 lb) 118/70 patient rescheduled due to provider in surgery 06/07/20 32w 5d 156 lb (+27 lb) Negative Negative 140 32 SM- no vb lof good fm no regular ctx 06/21/20 34w 5d 161 lb 5 oz (+32 lb 5 oz) 110/62 Negative Negative 145 35 Sm- no vb lof good fm o regular ctx 07/05/20 36w 5d 162 lb (+33 lb) 111/68 Negative Negative 140 37 Cephalic 1 SM- no vb lof good fm no regular ctx gbs neg 07/11/20 37w 4d 163 lb 2 oz (+34 lb 2 oz) 106/72 Negative Negative 155 38 Cephalic SM- no vb lof good fm no regular ctx 07/17/20 38w 3d 167 lb 2 oz (+38 lb 2 oz) 118/78 130 38 Cephalic GP - no LOF, VB, DFM, ctx. Declines exam. 07/24/20 39w 3d 169 lb 8 oz (+40 lb 8 oz) 120/74 Negative Negative 135 39 Cephalic 3 70 -2 GP - no LOF, VB, DFM, ctx. Discussed routes of delivery and labor preferences. Wants to wait until after due date before considering membrane stripping. 07/29/20 40w 1d 102/78 130 40 Cephalic 3 SM- no vb lof good fm no regular ctx. ACOG First Trimester First Trimester: Desire for , Alcohol, Tobacco Cessation, Illicit/Recreational Drug/Substance Use, Intimate Partner Violence, Barriers to care, Unstable Housing, Communication Barriers, Environmental/Work Hazards, Anticipated Course of Care, Toxoplasmosis Precations, Use of Any medications, Sexual activity, Exercise, Dental Care, Sauna/Hot tub use, Seat Belt use, Childbirth classes/Hospital facilities, , Travel, Indications for US and Screening for Aneuploidy Diagnostics Diagnostics Diagnostics Glucose 1 Hr 50 gm 104 mg/dL (70-140) 04/29/20 Hgb 10.9 g/dL (12.0-15.0) L 06/21/20 Hct 34.6 % (37-47) L 06/21/20 Details: HIV: Urine Culture: Sequential Screen: NIPT Screen: ROS Const Reports system reviewed and no additional complaints, except as docu Card Reports system reviewed and no additional complaints, except as docu Resp Reports system reviewed and no additional complaints, except as docu GI Reports system reviewed and no additional complaints, except as docu, Reports nausea Reports system reviewed and no additional complaints, except as docu Musc Reports system reviewed and no additional complaints, except as docu Exam Const General: cooperative, healthy appearing, comfortable, anxious HENMT Head: normal to inspection Nose: external nose normal Face and sinus: normal facial exam Neck Neck: normal visual inspection, full ROM, no lymphadenopathy Thyroid: thyroid normal Chest Chest palpation & inspection: normal inspection of the chest Resp Effort & Inspection: normal respiratory effort GI Inspection: normal to inspection Palpation: soft, other (gravid uterus) Other: vertex and appropriate size for gestational age Other: Cervical Exam: Extrem General: pedal edema Coding Level of Care Code OB Routine UPDATE- I have seen the patient and performed any clinically relevant updates to the history and physical exam. Nicky Medellin MD
[2020-08-04] MEDS: Lactated Ringers 500 ML 999 ML IV (11:58)
[2020-08-04] MEDS: fentaNYL-bupivacaine (epidural) 100 ML BAG EPIDURAL ×2 (13:09)
--- NOTE | 2020-08-04 13:35 | PCM.OPRPT ---
Problem List (1) 40 weeks gestation of Status: Acute Comment: declines covid test, advised to wear mask sc (2) Influenza vaccination declined Status: Acute Comment: 03/29/2020sc (3) Mild anemia Status: Acute Comment: repeat cbc in 4 wks (4) Status: Acute Qualifiers: Comment: declines genetic, carrier and NTD. normal anatomy would like building custodian in room if she can (5) Supervision of other normal Status: Acute Comment: PRR RUBEN 07/28/2020 boy PC: Anuradha Spouse:Atif Vaginal Delivery Maternal Presentation: Medically Indicated Induction iol 41 weeks Method of Induction: Pitocin Amniotic Membrane Rupture Type: Spontaneous Amniotic Fluid Description: Clear Final RUBEN: 07/28/20 Gestational age: 41 Weeks and 0 Days Date of Procedure: 08/04/20 Pre-Operative Diagnosis: iol postdates` Post-Operative Diagnosis: same Surgery/ Procedure Performed: Spontaneous Vaginal Delivery Type of Anesthesia: Epidural Description of Procedure: Patient began pushing and delivered the head in the [ARON] presentation. The head was delivered atraumatically. The anterior and posterior shoulders delivered without complication followed by the rest of the and the infant was placed on the maternal abdomen. Delayed cord clamping was employed for approximately 60 seconds. Cord was clamped and cut and gentle traction was applied to the cord and the placenta delivered spontaneously immediately following it was noted to be intact with three-vessel cord. The perineum and vagina were inspected and to have a second-degree perineal laceration that was repaired in the usual fashion with 3-0 Vicryl Rapide. EBL was 200 cc. Patient and infant tolerated delivery well. Presentation: ARON Placental Delivery Description: Spontaneous Placenta Disposition: [facility] Cord Vessel Description: 3 Vessels Cord Entanglement: None Estimated Blood Loss: 200 A gender: Male Episiotomy Description: None, Perineal Extension/lac Laceration: Perineal Extension/lac, 2nd degree Complications: None Multi Select Codes - Urinary/Genital Urinary/Genital CPT Codes: 35535 Vaginal Delivery [facility]
--- NOTE | 2020-08-04 17:15 | NURSING ---
Pt up to bathroom with RN at side. Gait steady, denies dizziness or lightheadedness. Tucks given for hemorrhoids and voided without difficulty. Pt demonstrated proper beatriz-care using beatriz bottle. Debra pad put on bed, linens changed, and towels/washcloths/gown placed in bathroom. Encouraged patient to order supper before 1730.
[2020-08-04] MEDS: Naproxen 250 MG Tablet 500 MG PO (17:18)
[2020-08-04] MEDS: Acetaminophen 500 MG Tablet 1000 MG PO (20:23)
--- NOTE | 2020-08-04 20:31 | DCINST_ITS ---
Discharge Diet: No Restrictions Discharge Activity: Return to Normal Activity, May not drive while taking narcotic pain medications., May Shower May resume sexual activity in: 4-6 weeks Call your doctor if your incision/area has: Continuous Slow Oozing, Sudden Increased Bleeding, Increased Pain/ Swelling, Increased Redness, Foul Smelling Discharge Additional Instructions: If you experience any of the following, contact your healthcare provider. * Bleeding that soaks a pad every hour for 2 hours * Fever 100.4 or higher * Unrelieved incision or abdominal pain * Swelling, redness, discharge or bleeding from your incision or episiotomy site * Your incision begins to separate * Problems urinating (including inability to urinate or burning while urinating). * Visual changes * Severe headache * Flu-like symptoms * Pain or redness in one of both of your breasts * Pain, warmth, tenderness or swelling in your legs, especially the calf area * Frequent nausea and vomiting * Symptoms of depression or anxiety If you experience any of the following, call 911 or go to the nearest Emergency Room. * Chest pain * Problems breathing * Seizure activity * Partial or complete paralysis of a body part, slurred speech, weakness or drooping of the face, or a sudden inability to walk or hold your balance Allergies/Adverse Reactions: Allergies latex Allergy (Verified 08/04/20 08:37) Itching Medications to take at Discharge prenat.vits,rebecca,hkx-ucek-jxzxo 1 tab PO QDAY 02/15/18 Best 1 tab PO DAILY 08/04/20 Ferrous Sulfate [Iron] 325 mg PO DAILY 08/04/20 Lactobacillus Combo No.10 [Probiotic] 1 ea PO DAILY 08/04/20 Magnesium 1 tab PO DAILY 08/04/20 Naproxen [Naprosyn] 250 - 500 mg PO Q8H PRN PRN #30 tab 08/04/20 Vit C/Ascorb Sod/Multivit-Min 1 tab PO DAILY 08/04/20 Vit D3/Vit K2/Calc Frutoborate [Move Free Egebt-Gpzjcb-R2-D3] 1 ea PO DAILY 08/04/20 The following prescriptions were given: Naproxen [Naprosyn] 250 - 500 mg PO Q8H PRN PRN #30 tab PRN Reason: MILD PAIN Transmission Status: Pending to [facility] Please Follow Up With: Nicky Medellin MD - [phone] When: Call to make an appointment with your doctor in 6 weeks. If you had elevated Blood pressure or 4th degree laceration you will need to be seen in 2 weeks. Primary Care Physician: Dorian Goode MD [Primary Care Provider] - Test Results: Test results from this visit will be discussed in further detail at your follow- up appointment, if applicable.
--- NOTE | 2020-08-04 20:31 | PCM.DCVAG ---
Discharge Diet: No Restrictions Discharge Activity: Return to Normal Activity, May not drive while taking narcotic pain medications., May Shower May resume sexual activity in: 4-6 weeks Call your doctor if your incision/area has: Continuous Slow Oozing, Sudden Increased Bleeding, Increased Pain/ Swelling, Increased Redness, Foul Smelling Discharge Additional Instructions: If you experience any of the following, contact your healthcare provider. Bleeding that soaks a pad every hour for 2 hours Fever 100.4 or higher Unrelieved incision or abdominal pain Swelling, redness, discharge or bleeding from your incision or episiotomy site Your incision begins to separate Problems urinating (including inability to urinate or burning while urinating). Visual changes Severe headache Flu-like symptoms Pain or redness in one of both of your breasts Pain, warmth, tenderness or swelling in your legs, especially the calf area Frequent nausea and vomiting Symptoms of depression or anxiety If you experience any of the following, call 911 or go to the nearest Emergency Room. Chest pain Problems breathing Seizure activity Partial or complete paralysis of a body part, slurred speech, weakness or drooping of the face, or a sudden inability to walk or hold your balance Allergies/Adverse Reactions: Allergies latex Allergy (Verified 08/04/20 08:37) Itching Medications to take at Discharge prenat.vits,rebecca,lmx-buic-olidl 1 tab PO QDAY 02/15/18 Best 1 tab PO DAILY 08/04/20 Ferrous Sulfate [Iron] 325 mg PO DAILY 08/04/20 Lactobacillus Combo No.10 [Probiotic] 1 ea PO DAILY 08/04/20 Magnesium 1 tab PO DAILY 08/04/20 Naproxen [Naprosyn] 250 - 500 mg PO Q8H PRN PRN #30 tab 08/04/20 Vit C/Ascorb Sod/Multivit-Min 1 tab PO DAILY 08/04/20 Vit D3/Vit K2/Calc Frutoborate [Move Free Bpzsd-Xbtcvb-J3-D3] 1 ea PO DAILY 08/04/20 The following prescriptions were given: Naproxen [Naprosyn] 250 - 500 mg PO Q8H PRN PRN #30 tab PRN Reason: MILD PAIN Transmission Status: Pending to [facility] Please Follow Up With: Nicky Medellin MD - [phone] When: Call to make an appointment with your doctor in 6 weeks. If you had elevated Blood pressure or 4th degree laceration you will need to be seen in 2 weeks. Primary Care Physician: Dorian Goode MD [Primary Care Provider] - Test Results: Test results from this visit will be discussed in further detail at your follow-up appointment, if applicable.
[2020-08-04] MEDS: Senna/Docusate Sodium 1 Tablet PO (21:56)
[2020-08-05] VITALS (10 sets, daily range): BP systolic 94–109; BP diastolic 54–64; PULSE 81–96; RESP 16–18; TEMP 36.3–37; O2SAT 98
[2020-08-05] MEDS: Naproxen 250 MG Tablet 500 MG PO ×2 (01:19→09:50)
[2020-08-05] MEDS: Acetaminophen 500 MG Tablet 1000 MG PO ×2 (05:07→12:55)
[2020-08-05] MEDS: Senna/Docusate Sodium 1 Tablet PO (09:49)
--- NOTE | 2020-08-05 17:10 | PCM.PN.OB ---
Patient Problems: Active and Suspected Problems (Last Reviewed 07/29/20 @ 13:48 by Elidia Ash) Mild anemia (Acute) repeat cbc in 4 wks Influenza vaccination declined (Acute) 03/29/2020sc Subjective: Patient doing well without complaints. Tolerating PO. Ambulating and voiding without difficulty. feeding well. Denies chest pain, shortness of breath, calf pain/swelling, fevers, chills, lightheadedness. - Physical Exam Vitals/I&O's: Vital Signs Temp Pulse Resp BP Pulse Ox 98.2 F 96 18 109/64 98 08/05/20 12:56 08/05/20 12:57 08/05/20 12:00 08/05/20 12:57 08/05/20 08:10 Oxygen Delivery Method Room Air Weight: 171 lb 4.787 oz Body Mass Index (BMI) 29.4 Intake and Output for Last 24 Hours 08/03/20 08/04/20 08/05/20 23:59 23:59 23:59 Intake Total 2609.22 / 2609.22 Output Total 1800 / 1800 Balance 809.22 / 809.22 General: Alert, Oriented x3 Current Medications Acetaminophen (Acetaminophen 500 Mg Tablet) 1,000 mg PO Q8H PRN PRN PRN Reason: Pain Score 1-3 Last Admin: 08/05/20 12:55 Dose: 1,000 mg Documented by: Bisacodyl (Bisacodyl 10 Mg Suppository) 10 mg RECTAL UD PRN PRN Reason: If no BM Dibucaine (Dibucaine 30 Gm Tube) 1 applic TOPICAL TID PRN PRN; Protocol PRN Reason: Discomfort Hydrocortisone (Hydrocortisone 2.5% Crm) 1 applic TOPICAL TID PRN PRN; Protocol PRN Reason: Discomfort Methylergonovine Maleate (Methylergonovine 0.2 Mg/Ml Ampul) 0.2 mg IM X1 PRN PRN Reason: Excess bleeding/uterine atony Naproxen (Naproxen 250 Mg Tablet) 500 mg PO Q8H PRN PRN PRN Reason: Pain Score 1-3 Last Admin: 08/05/20 09:50 Dose: 500 mg Documented by: Ondansetron HCl (Ondansetron 4 Mg/2 Ml Vial) 4 mg IV Q4H PRN PRN PRN Reason: Nausea Oxycodone HCl (Oxycodone 5 Mg Tablet) 5 - 10 mg PO Q4H PRN PRN PRN Reason: Pain Score 4-10 Senna/Docusate Sodium (Senna/Docusate Sodium 1 Tablet) 1 - 2 tablet PO DAILY PRN PRN PRN Reason: Constipation Last Admin: 08/05/20 09:49 Dose: 2 tablet Documented by: Simethicone (Simethicone 80 Mg Tablet) 80 mg PO PCHS PRN PRN Reason: Indigestion/Stomach pain Sodium Chloride (0.9% Saline Lock 10 Ml Syringe) 5 - 15 ml IV UD PRN PRN Reason: SALINE FLUSH Medical Necessity - Tobacco Use Smoking Status: Never smoker Assessment/Plan All Active Problems (Last Reviewed 07/29/20 @ 13:48 by Elidia Ash) Mild anemia (Acute) Influenza vaccination declined (Acute) 40 weeks gestation of (Resolved) (Resolved) Supervision of other normal (Resolved) Anemia during (Resolved) Maternal asthma complicating (Resolved) PROM (premature rupture of membranes) (Resolved) (Resolved) Supervision of normal (Resolved) s/p PPD # 1 1. routine post delivery care 2. breast feeding- support given 3. rh positive 4. rubella immune
== END 2020-08-05 17:25 | disposition home or self-care (01) | DRG 807 ==
PROVIDERS: Admitting Provider Obstetrics & Gynecology; PCP Family Medicine; Visit Provider Obstetrics & Gynecology
DX: O48.0 Post-term pregnancy (principal); Z37.0 Single live birth; Z3A.41 41 weeks gestation of pregnancy; D64.9 Anemia, unspecified; O99.02 Anemia complicating childbirth; O70.1 Second degree perineal laceration during delivery
CPT/HCPCS: 59025; 59050; 85025; 86850; 86900; 86901; 99218; J7120; A4216; G0378